=== PATIENT | female | born 1960 | race Caucasian/White ===

== ENCOUNTER 2024-03-24 08:22 | Day surgery (SDC) | payer BC, SELFPAY ==
--- NOTE | 2024-03-24 | LES_PTH ---
PATIENT: LOVE ROMANO LOC: [facility] – [place] U#:[id number] AGE/SX: 63/F ROOM: RE03/24/[address]: Dr. Deepali Dubose MD : 1960 BED: DIS: 03/24/2024 SPEC #: [id number] RECD: 03/24/24 12:53 STATUS: MARIO REQ #: [id number] LAYLA: 03/24/24 00:[address]: Deepali Dubose DEPT: SURGICAL PATHOLOGY RECD BY: Cory Livingston ENTERED: 03/24/24 12:53 SP TYPE: Lesion OTHR DR: Dr. Patrick Mehta MD Tissues: Skin of leg, NOS Procedures: Surgery Specimen Level IV HEADER OPERATION: Excision lesion right medial knee area (1cm) with intermediate PRE-OP DIAGNOSIS: Neoplasm of uncertain behavior of skin, right medial knee TISSUE SUBMITTED: Neoplasm of uncertain behavior of skin right medial knee MICROSCOPIC DIAGNOSIS Skin lesion of right medial knee, biopsy: Basal cell carcinoma, superficial, multifocal, completely excised. Focal hyperkeratosis and parakeratosis. AM. 03/27/2024 MICROSCOPIC DESCRIPTION Slides are reviewed. GROSS DESCRIPTION Received in fixative is one container labeled with the patient's name and designated Neoplasm of uncertain behavior of skin right medial knee. The specimen consists of a piece of colbert-white skin measuring 1.1 x 0.7 x 0.1cm. The specimen is inked, serially sectioned and submitted entirely in one cassette. 03/24/2024 TC:0 CPT:95104
--- NOTE | 2024-03-24 08:28 | PCM.HP.BLA ---
History and Physical Date of Admission: 03/24/24 The patient is examined and there are no changes to the H&P dated 03/14/2024. She presents for excision of a neoplasm of the right medial knee area. Informed consent was obtained. Assessment & Plan Assessment/Plan (1) Neoplasm of uncertain behavior of skin: PLAN: Plan For excision lesion right medial knee with intermediate closure.
[2024-03-24 08:36] VITALS: BP 125/53; PULSE 88; RESP 18; TEMP 36.2; O2SAT 100; BMI 21.3
[2024-03-24 08:57] VITALS: BP 101/66; BP 107/65; BP 98/62; O2SAT 100; O2SAT 99
[2024-03-24] MEDS: Lidocaine 1% /Epi 1:100 9 ML, Sodium Bicarbonate 1 MEQ OPERA.SITE (09:14)
--- NOTE | 2024-03-24 09:37 | DCINST_ITS ---
Discharge Instructions Dressing / Incision Additional Dressing/Incision Instructions:: Keep your leg elevated when sitting to help reduce swelling. Take the oral antibiotic (Keflex) 2 times a day until finished May remove the dressing to shower??replace with dry gauze and a wrap. Keep the area covered when working outside and to protect the sutures from getting snagged Follow Up Care Please Follow Up With: Deepali Dubose MD When: In 1 to 2 weeks Test Results: Test results from this visit will be discussed in further detail at your follow- up appointment, if applicable. Discharge Plan Admission Attending Provider: Deepali Dubose Primary Care Provider: Patrick Mehta Instructions Print Language: Sinhala Discharge Orders/Prescriptions Prescriptions: New cephalexin 500 mg capsule 500 mg PO BID 5 Days Qty: 10 0RF No Action trazodone 100 mg tablet 100 mg PO DAILY atorvastatin 10 mg tablet 5 mg PO DAILY Emgality Syringe 120 mg/mL syringe 120 mg subcut QMONTH primidone 50 mg tablet 50 mg PO ONCE sertraline [Zoloft] 50 mg tablet 50 mg PO DAILY Referrals / Follow Up: Patrick Mehta MD [Primary Care Provider] - Disposition Disposition (needs filled in before D/C Order can be placed): Home, Self Care
--- NOTE | 2024-03-24 09:40 | PCM.OPRPT ---
Problems Associated Problem List Diagnoses (1) Neoplasm of uncertain behavior of skin: Report of Operation Date of Procedure: 03/24/24 Pre-Operative Diagnosis: Neoplasm right lower leg of uncertain behavior Post-Operative Diagnosis: Same Surgery/Procedure Performed:: Excision lesion right lower leg (2.5 cm) with intermediate closure Surgeon: Deepali Dubose Type of Anesthesia: Local Specimen's removed: Neoplasm right lower leg Estimated Blood Loss (mL): Minimal Description of Procedure: The patient presents with a neoplasm of the right lower leg. She presents for excision of the lesion with submission for pathologic evaluation. The patient is brought to the operating room and placed on the operating room table in the supine position. The right lower leg is prepped and draped in the usual sterile fashion. 1% Xylocaine with epinephrine is used for local anesthetic. Following this, the site is elliptically excised and passed off the operative field to be sent to pathology. Hemostasis is controlled with cautery. The incisions then closed in layers using a Monocryl suture in the subcutaneous tissue and dermis. Skin edges were approximated with a running subcuticular Monocryl suture. Further reinforcement the closure is done with interrupted Prolene suture. Dermabond is applied to the incision along with dry gauze and a Coban wrap. She tolerated the procedure well was taken to the recovery area in an awake and stable condition. Needle and sponge counts are correct. Complications None Admit VTE Documentation VTE Mechan Device Prophylaxis: None Reason prophylaxis not ordered:: Treatment Not Indicated
[2024-03-24 09:53] VITALS: BP 111/56; BP 125/53; PULSE 70; RESP 14; TEMP 36.7; O2SAT 97
== END 2024-03-24 09:56 | disposition home or self-care (01) ==
LOC: SDC 08:23 → AC 08:25
PROVIDERS: PCP Internal Medicine; Referring Provider Plastic Surgery; Visit Provider Plastic Surgery
PROC: (CPT 11403; principal; 2024-03-24 09:10)
DX: C44.712 Basal cell carcinoma of skin of right lower limb, including hip (principal); Z79.899 Other long term (current) drug therapy
CPT/HCPCS: 11403; 12031; 88305

== ENCOUNTER 2024-04-14 12:44 | Day surgery (SDC) | payer BC, SELFPAY ==
[2024-04-14 13:31] VITALS: BP 117/57; PULSE 72; RESP 16; TEMP 36.8; O2SAT 100; BMI 21.7
--- NOTE | 2024-04-14 13:40 | PCM.HP.BLA ---
History and Physical Date of Admission: 04/14/24 The patient is examined and there are no changes from the H&P dated 04/11/2024. The patient presents for excision of the lesion of the right lateral ankle. This will be submitted for pathologic evaluation. She is aware the potential need for further surgery depending on the resulting pathology. Assessment & Plan Assessment/Plan (1) Neoplasm of uncertain behavior of skin of lower leg: PLAN: Plan For excision lesion right lateral ankle.
[2024-04-14 14:00] VITALS: BP 118/68; O2SAT 100
--- NOTE | 2024-04-14 14:05 | LES_PTH ---
PATIENT: LOVE ROMANO [place] [facility] [place][id number] AGE/SX: 63/F ROOM: RE04/14/[address]: Dr. Deepali Dubose MD : 1960 BED: DIS: 04/14/2024 SPEC #: [id number] RECD: 04/14/24 15:25 STATUS: MARIO REDeena #: [id number] LAYLA: 04/14/24 14:[address]: Deepali Dubose DEPT: SURGICAL PATHOLOGY RECD BY: Stefany Young ENTERED: 04/17/24 06:53 SP TYPE: Lesion OTHR DR: Dr. Patrick Mehta MD Tissues: Skin of ankle and foot Procedures: Surgery Specimen Level IV HEADER OPERATION: Excision lesion right ankle PRE-OP DIAGNOSIS: Neoplasm of uncertain behavior of skin of lower leg TISSUE SUBMITTED: Lesion right ankle MICROSCOPIC DIAGNOSIS Skin lesion of right ankle, biopsy: Basal cell carcinoma, superficial, multifocal, completely excised. Mild chronic inflammation. AM. 04/18/2024 MICROSCOPIC DESCRIPTION Slides are reviewed. GROSS DESCRIPTION Received in fixative is one container labeled with the patient's name and designated Lesion of right ankle. The specimen consists of a piece of colbert-white skin ellipse measuring 1.0 x 0.5 x 0.2cm. The specimen is inked, serially sectioned and submitted entirely in one cassette. CLIFFORD. 04/17/2024 TC:0 CPT:64513
[2024-04-14 14:13] VITALS: BP 112/68; O2SAT 100; O2SAT 98; O2SAT 99
[2024-04-14] MEDS: Lidocaine 1% /Epi 1:100 9 ML, Sodium Bicarbonate 1 MEQ OPERA.SITE (14:13)
--- NOTE | 2024-04-14 14:37 | EX.PCM.DISCH ---
Discharge Instructions Dressing / Incision Additional Dressing/Incision Instructions:: Leg elevated is much as possible to decrease swelling. Take the oral antibiotic (Keflex) 2 times a day until finished. May leave the dressing in place until seen in the office If you remove the dressing for showering, redress with antibiotic ointment (like Neosporin, bacitracin, or triple antibiotic ointment), gauze, and a Coban wrap.. Follow Up Care Please Follow Up With: Deepali Dubose MD When: 1 to 2 weeks Test Results: Test results from this visit will be discussed in further detail at your follow-up appointment, if applicable. Discharge Plan Admission Attending Provider: Deepali Dubose Primary Care Provider: Patrick Mehta Instructions Print Language: Taiwanese Discharge Orders/Prescriptions Prescriptions: New cephalexin 500 mg capsule 500 mg PO BID 7 Days Qty: 14 0RF No Action trazodone 100 mg tablet 100 mg PO DAILY atorvastatin 10 mg tablet 5 mg PO DAILY Emgality Syringe 120 mg/mL syringe 120 mg subcut QMONTH primidone 50 mg tablet 50 mg PO ONCE sertraline [Zoloft] 50 mg tablet 50 mg PO DAILY Referrals / Follow Up: Patrick Mehta MD [Primary Care Provider] - Disposition Disposition (needs filled in before D/C Order can be placed): Home, Self Care
--- NOTE | 2024-04-14 14:40 | PCM.OPRPT ---
Problems Associated Problem List Diagnoses (1) Neoplasm of uncertain behavior of skin of lower leg: Report of Operation Date of Procedure: 04/14/24 Pre-Operative Diagnosis: Neoplasm of uncertain behavior right leg Post-Operative Diagnosis: Same Surgery/Procedure Performed:: Excision lesion right ankle (2 cm) with intermediate closure Surgeon: Deepali Dubose Type of Anesthesia: Local Specimen's removed: Neoplasm right ankle Estimated Blood Loss (mL): Minimal Description of Procedure: The patient presents with a new onset of a neoplasm of the right lateral ankle skin. She presents for excision of the neoplasm with submission for pathologic evaluation. She is aware the potential need for further surgery depending on the resulting pathology. The patient is brought to the operating room and placed on the operating room table in the supine position. The right lateral ankle is prepped and draped in the usual sterile fashion. Initial began with injecting 1% Xylocaine with epinephrine buffered with sodium bicarb. Following this, the site is elliptically excised and passed off the operative field to be sent to pathology. Hemostasis is controlled with cautery. The incisions then closed in layers using a Vicryl suture in the subcutaneous tissue and dermis. Further reinforcement is done with a subcuticular closure. Because of the tightness of the closure, interrupted silk sutures were also placed along with a running chromic suture to refine the closure. Xeroform, gauze, and a Coban wrap is used to dress the site. She tolerated the procedure well was taken to the recovery area in an awake and stable condition. Needle and sponge counts are correct. Complications None Admit VTE Documentation VTE Mechan Device Prophylaxis: None Reason prophylaxis not ordered:: Treatment Not Indicated
== END 2024-04-14 15:00 | disposition home or self-care (01) ==
LOC: SDC 12:45 → AC 12:47
PROVIDERS: PCP Internal Medicine; Referring Provider Plastic Surgery; Visit Provider Plastic Surgery
PROC: (CPT 11602; principal; 2024-04-14 13:55)
DX: C44.712 Basal cell carcinoma of skin of right lower limb, including hip (principal)
CPT/HCPCS: 11602; 12031; 88305